=== PATIENT | male | born 1940 | race Caucasian/White ===

== ENCOUNTER 2017-11-05 08:54 | Emergency (ER) | payer OTHER ==
[~2017-11-05] VITALS: Ht 172.7 cm; Wt 74.8 kg
[~2017-11-05 08:54] MED LIST: ASPIRIN EC81 M1 PO; ASPIRIN81 M1 PO; FEOSOL325 MG PO; FISH OIL CONC1000 M1 PO; FOLIC ACID 1 MG PO; FOLIC ACID1 M1 PO; KEFLEX500 MG PO; MULTIPLE VITAM1 EAC2 PO; MULTIVITAMIN1 TAB PO; NAPROXEN375 M2 PO; NORVASC10 M1 PO; PERCOCET 5-3251 EACH PO; TOPROL XL25 M1 PO; TOPROL XL25 MG PO; VITAB121000 PO; VITAMIN B-121000 MC3 PO
--- NOTE | 2017-11-05 10:19 | ED AMS/SEIZURE/WEAK/DIZZY ---
History of Present Illness General Chief Complaint: General Adult Stated Complaint: HIGH BP PER PT Source: patient, old records Exam Limitations: no limitations Vital Signs & Intake/Output Vital Signs & Intake/Output Vital Signs Date Time Temp Pulse Resp B/P B/P Pulse O2 O2 Flow FiO2 Mean Ox Delivery Rate 11/05 1143 60 20 150/80 96 Room Air 11/05 1122 98.0 80 20 174/88 11/05 1052 98.0 80 20 174/88 98 Room Air 11/05 1025 98.6 76 18 182/80 11/05 0854 98.6 76 18 182/80 98 Room Air Allergies Coded Allergies: No Known Allergies (06/16/15) Reconcile Medications Amlodipine Besylate (Norvasc) 10 MG TABLET 10 MG PO DAILY HYPERTENSION Aspirin (Ecotrin*) 81 MG TABLET.DR 1 TAB PO DAILY HX OF BLOOD CLOTS (Reported ) Cyanocobalamin (Vitamin B-12) 1,000 MCG TABLET 1 TAB PO DAILY SUPPLEMENT ( Reported) Ferrous Sulfate (Feosol) 325 MG TABLET 1 TAB PO DAILY ANEMIA Folic Acid 1 MG TABLET 1 TAB PO DAILY SUPPLEMENT (Reported) Metoprolol Succ XL (Toprol XL) 25 MG TAB 1 TAB PO DAILY HEART (Reported) Multivitamin (Multiple Vitamins) 1 EACH TABLET 1 TAB PO DAILY SUPPLEMENT ( Reported) [place]-3 Fatty Acids (Fish Oil Concentrate) 1,000 MG CAPSULE 1 CAP PO DAILY SUPPLEMENT (Reported) Core Measure Meds Pre-Hospital aspirin Triage Note: 77 YO MALE TO TRIAGE FOR EVAL OF HIGH BLOOD PRESSURE AND R HAND SWELLING. DENIES ANY INJURY TO HAND, NOTED WITH SWELLING TO L INDEX FINGER. REPORTS HE CHECKED HIS BLOOD PRESSURE THIS AM AT HOME AND IT WAS HIGH. BP 180/82 MANUALLY IN TRIAGE, PT DENIES CHEST PAIN. C/O DULL CALDERON. DENIES VISUAL CHANGES. STATES TOOK HIS BP MEDS THIS AM, UNSURE WHAT HE TAKES Triage Nurses Notes Reviewed? yes Onset: yesterday Duration: day(s):, constant, continues in ED, getting worse Timing: recent history Injury Environment: home Severity: moderate No Modifying Factors: none HPI: 1 day prior to admission patient complains of increasing dizziness. Prior to admission he awoke with continued dizziness with high blood pressure reading headache swelling and redness to the left index finger. He denies trauma fever chills nausea vomiting diarrhea abdominal pain chest pain shortness of breath dysuria bleeding. He is right-hand dominant Past History Travel History Traveled to [place] past 21 day No Medical History Any Pertinent Medical History? see below for history Neurological: NONE EENT: NONE Cardiovascular: hypertension, PVD, nonobstructive CAD Respiratory: COPD Gastrointestinal: NONE Hepatic: NONE Renal: NONE Musculoskeletal: left hip fracture Psychiatric: alcohol dependence Endocrine: NONE Blood Disorders: NONE Cancer(s): NONE BRAND MANAGER/Reproductive: NONE History of MRSA: No History of VRE: No History of CDIFF: No Surgical History Surgical History: hip replacement, left hip replacement, right carotid endarterectomy, left common femoral endarterectomy, left fem-pop bypass which became occluded requiring left femoral-posterior tibial bypass Psychosocial History Who do you live with Patient/Self Services at Home None What is your primary language Luxembourgish Tobacco Use: Never used Family History Family History, If Any: FATHER (HTN, Stroke, colon cancer). FH: colon cancer FH: hypertension FH: [place] (myocardial infarction) FH: stroke DAUGHTER FH: colon cancer Hx Contributory? Yes Review of Systems Review of Systems Constitutional: Reports: see HPI, malaise. EENTM: Reports: no symptoms. Respiratory: Reports: no symptoms. Cardiovascular: Reports: no symptoms. GI: Reports: no symptoms. Genitourinary: Reports: no symptoms. Musculoskeletal: Reports: see HPI, joint pain, joint swelling. Skin: Reports: see HPI, rash. Neurological/Psychological: Reports: no symptoms. Hematologic/Endocrine: Reports: no symptoms. Immunologic/Allergic: Reports: no symptoms. All Other Systems: Reviewed and Negative Physical Exam Physical Exam General Appearance: well developed/nourished, alert, awake, anxious, mild distress Head: atraumatic, normal appearance Eyes: Bilateral: normal appearance, PERRL, EOMI. Ears, Nose, Throat: normal pharynx, normal ENT inspection, hearing grossly normal Neck: normal inspection, supple, full range of motion, no midline tenderness Respiratory: normal breath sounds, chest non-tender, no respiratory distress, quiet respiration, lungs clear Cardiovascular: regular rate/rhythm, normal peripheral pulses, norml femoral pulses equa Peripheral Pulses: 4+ carotid (R), 4+ carotid (L) Gastrointestinal: normal bowel sounds, soft, non-tender, no organomegaly Back: normal inspection, normal range of motion, no vertebral tenderness Extremities: normal range of motion, pain with movement, soft tissue tenderness over the left index finger proximal phalanx to metacarpal Neurologic/Psych: no motor/sensory deficits, awake, alert, oriented x 3, normal gait, normal mood/affect, 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 Skin: intact, warm/dry, rash (over left index finger) Lymphatic: no anterior cervical leelee Core Measures ACS in differential dx? No CVA/TIA Diagnosis No Sepsis Present: No Sepsis Focused Exam Completed? No Progress Differential Diagnosis: CVA/stroke, dehydration, drug intoxication, electrolyte imbalance, intracranial mass/tumor Plan of Care: Orders Procedure Date/time Status URIC ACID 11/05 1004 Complete TSH REFLEX 11/05 1004 Complete TROPONIN LEVEL 11/05 1004 Complete MAGNESIUM 11/05 1004 Complete HIGH SENSITIVITY CRP 11/05 1004 Complete COMPREHENSIVE METABOLIC PANEL 11/05 1004 Complete CBC WITHOUT DIFFERENTIAL 11/05 1004 Complete EKG 11/05 1004 Active Current Medications Sig/Aruna Start time Last Medication Dose Stop Time Status Admin Labetalol HCl 100 MG ONCE ONE 11/05 1200 UNVr (Trandate) 11/05 1201 Laboratory Tests 11/05/17 1022: Anion Gap 8, Estimated GFR > 60, BUN/Creatinine Ratio 30.0 H, Glucose 95, Uric Acid 6.5, Calcium 9.1, Magnesium 2.0, Total Bilirubin 0.7, AST 28, ALT 31, Alkaline Phosphatase 69, Troponin I < 0.01, C-React Prot High Sens 6.3 H, Total Protein 7.0, Albumin 3.9, Globulin 3.1, Albumin/Globulin Ratio 1.3, TSH &T3 & Free T4 Intrp 1.090, CBC w Diff NO MAN DIFF REQ, RBC 4.99, MCV 85.1, MCH 28.6, MCHC 33.7, RDW 17.6 H, MPV 8.6, Gran % 78.3 H, Lymphocytes % 10.9 L, Monocytes % 6.4, Eosinophils % 4.1, Basophils % 0.3, Absolute Granulocytes 7.6 H, Absolute Lymphocytes 1.1 L, Absolute Monocytes 0.6, Absolute Eosinophils 0.4 , Absolute Basophils 0 Diagnostic Imaging: Viewed by Me: Radiology Read, CT Scan. Discussed w/RAD: Radiology Read, CT Scan. Radiology Impression: 1. Positive soft tissue swelling over the PIP joints of the second digit with underlying mild degenerative changes seen. No acute fracture or dislocation. 2. Mild soft tissue swelling over the PIP joint of the third digit. 3. Mild osteoarthritic changes in the fingers and hand as discussed above., 1. No acute intracranial pathology. 2. Mild involutional changes and findings of ischemic small vessel disease, similar to prior exam. 3. Small mucous retention cyst in the right ethmoid air cells, unchanged Initial ED EKG: normal p-waves, normal sinus rhythm, RBBB, no ST T wave changes Prior EKG: unchanged Rhythm Strip: normal sinus rhythm Departure Departure Time of Disposition: 1156 Disposition: HOME OR SELF CARE Condition: Stable Clinical Impression Primary Impression: Hypertension Secondary Impressions: Degenerative arthritis of finger Referrals: López GABRIEL,Chaz Miller (PCP/Family) Departure Forms: Customer Survey General Discharge Information Prescriptions: Current Visit Scripts Labetalol HCl 1 TAB PO BID #60 TAB
[2017-11-05 10:36] LABS: ABSOLUTE BASOPHIL COUNT 0 /CUMM (0.0-0.2); ABSOLUTE EOSINOPHIL COUNT 0.4 /CUMM (0.0-0.7); ABSOLUTE GRANULOCYTE CT 7.6 /CUMM (1.4-6.5); ABSOLUTE LYMPH COUNT 1.1 /CUMM (1.2-3.4); ABSOLUTE MONOCYTE COUNT 0.6 /CUMM (0.10-0.60); BASOPHIL % 0.3 % (0.0-2.0); EOSINOPHIL % 4.1 % (0-5); GRANULOCYTE % 78.3 % (42.2-75.2); HEMATOCRIT 42.4 % (42-52); MEAN CORPUSCULAR HGB 28.6 PG (27.0-31.0); MEAN CORPUSCULAR HGB CONC 33.7 G/DL (33.0-37.0); MEAN CORPUSCULAR VOLUME 85.1 FL (80.0-94.0); MEAN PLATELET VOLUME 8.6 FL (7.4-10.4); PLATELET COUNT 234 /CUMM (130-400); RBC DISTRIBUTION WIDTH 17.6 % (11.5-14.5); RED BLOOD CELL CT 4.99 /CUMM (4.70-6.10); WHITE BLOOD CELL COUNT 9.7 /CUMM (4.8-10.8)
--- NOTE | 2017-11-05 11:38 | RADIOLOGY REPORT ---
EXAMINATION: XR FINGER, LEFT CLINICAL INFORMATION: Left index finger to distal metacarpal pain and swelling. Presumptive diagnosis of fracture. COMPARISON: None TECHNIQUE: Frontal view of the left hand and coned-down oblique and lateral views of the left second digit. FINDINGS: No acute fracture or dislocation is seen. There is prominent soft tissue swelling over the PIP joint of the left second digit with extension into the surrounding soft tissues. There is also mild soft tissue swelling over the PIP joint of the third digit. No underlying acute fracture or dislocation is seen. There is mild degenerative change noted with some spurring and cystic change at the PIP joint of the second digit. No erosive change, radiopaque foreign body, or joint calcifications are seen. There is mild degenerative change at the DIP joints of the second and third digits, the IP joint of the first digit, and minimally at the CMC and MCP joints of the first digit. IV tubing partially obscures assessment of the carpus. Patient's ring overlies the proximal phalanx of the fourth digit, obscuring assessment. IMPRESSION: 1. Positive soft tissue swelling over the PIP joints of the second digit with underlying mild degenerative changes seen. No acute fracture or dislocation. 2. Mild soft tissue swelling over the PIP joint of the third digit. 3. Mild osteoarthritic changes in the fingers and hand as discussed above.
--- NOTE | 2017-11-05 11:44 | CT SCAN REPORT ---
EXAMINATION: CT HEAD WITHOUT CONTRAST CLINICAL INFORMATION: Hypertension, headache, dizziness. Presumptive diagnosis of intracranial hemorrhage. COMPARISON: Scan of the head dated 11/02/2014. TECHNIQUE: Contiguous axial imaging was performed from the skull base to vertex without intravenous administration of contrast. DLP: 615.73 mGy-cm FINDINGS: There is no evidence of acute intracranial hemorrhage or territorial infarction. No abnormal mass effect or midline shift is seen. Kay to white matter differentiation is well preserved. No extra-axial fluid collections are identified. The ventricles and sulci are mildly enlarged, consistent with involutional change. The previously seen intraventricular hemorrhage in the right occipital horn of the lateral ventricle has resolved. There is mild diffuse low-attenuation in the periventricular deep white matter, similar to the previous exam, consistent with ischemic small vessel disease. The osseous structures and soft tissues are normal. There is a small mucous retention cyst in the right ethmoid air cells, unchanged. The mastoid air cells and visualized portions of the paranasal sinuses are well aerated. IMPRESSION: 1. No acute intracranial pathology. 2. Mild involutional changes and findings of ischemic small vessel disease, similar to prior exam. 3. Small mucous retention cyst in the right ethmoid air cells, unchanged.
[2017-11-05] MEDS ORDERED: LABETALOL HCL100 M1 PO (11:57)
[2017-11-05] MEDS ORDERED: MOBIC15 M1 PO (11:58)
[2017-11-05 12:06] VITALS: BP 150/80
== END 2017-11-05 12:13 ==
LOC: ERH 08:54
PROVIDERS: Emergency Medicine
DX: I10 Essential (primary) hypertension (principal); M19.042 Primary osteoarthritis, left hand; J44.9 Chronic obstructive pulmonary disease, unspecified; I25.10 Atherosclerotic heart disease of native coronary artery without angina pectoris
CPT/HCPCS: 73140-LT; 93005; 93010; 96374; 96376; J0131